=== PATIENT | female | born 1970 | race African-American/Black ===

== ENCOUNTER 2020-07-01 06:27 | Emergency (ER) | payer MEDICAID, OTHER ==
[~2020-07-01] VITALS: Ht 172.7 cm; Wt 78.9 kg
--- NOTE | 2020-07-01 06:40 | NUR ---
Went to evaluate pt however not in room, in bathroom. Ambulates from triage.
[2020-07-01 07:08] VITALS: BP 151/87
--- NOTE | 2020-07-01 07:13 | NUR ---
Recieved report from Jena RDZ. Completed inital assessment on pt who is complaining of R neck pain that radiates to R shoulder. Pt is A&O x4, no obvious deformities, speaking in full sentences. Pt is placed on continious BP and O2 monitor. Positioned for comfort and given warm blanket. CAMILLA.
== END 2020-07-01 08:15 | disposition home or self-care (01) ==
LOC: ED 07:14
DX: S46.811A Strain of other muscles, fascia and tendons at shoulder and upper arm level, right arm, initial encounter (principal); S20.219A Contusion of unspecified front wall of thorax, initial encounter; V49.09XA Driver injured in collision with other motor vehicles in nontraffic accident, initial encounter; Y93.89 Activity, other specified; Y92.410 Unspecified street and highway as the place of occurrence of the external cause; Y99.8 Other external cause status
CPT/HCPCS: 71045; 93005; 99283

== ENCOUNTER 2020-07-02 06:25 | Emergency (ER) | payer MEDICAID, OTHER ==
[~2020-07-02] VITALS: Ht 170.2 cm; Wt 77.8 kg
[2020-07-02 06:32] VITALS: BP 151/90
== END 2020-07-02 07:23 | disposition home or self-care (01) ==
LOC: ED 07:10
DX: M62.830 Muscle spasm of back (principal); M54.2 Cervicalgia
CPT/HCPCS: 99283

== ENCOUNTER 2020-07-09 07:29 | Emergency (ER) | payer MEDICAID, OTHER ==
[~2020-07-09] VITALS: Ht 172.7 cm; Wt 82.1 kg
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
[2020-07-09 08:03] VITALS: BP 139/88
[2020-07-09] MEDS ORDERED: ONDANSETRON 2MG/ML, 2ML IVPush ONE (08:30)
[2020-07-09] MEDS ORDERED: FAMOTIDINE 20 MG/2 ML IVPush ONE (08:30)
[2020-07-09] MEDS ORDERED: SODIUM CHLORIDE 0.9% 1,000ML IVBOLUS ONE (08:30)
== END 2020-07-09 09:32 ==
LOC: ED 08:44
DX: S16.1XXA Strain of muscle, fascia and tendon at neck level, initial encounter (principal); R51.9 Headache, unspecified; M54.5 Low back pain; V59.49XA Driver of pick-up truck or van injured in collision with other motor vehicles in traffic accident, initial encounter; Y93.89 Activity, other specified; Y92.488 Other paved roadways as the place of occurrence of the external cause; Y99.8 Other external cause status
CPT/HCPCS: 70450; 72125; 99285

== ENCOUNTER 2020-07-30 18:10 | Emergency (ER) | payer MEDICAID, OTHER ==
[~2020-07-30] VITALS: Ht 170.2 cm; Wt 76.7 kg
[2020-07-30 18:13] VITALS: BP 170/113
--- NOTE | 2020-07-30 18:48 | NUR ---
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
[2020-07-30] MEDS ORDERED: KETOROLAC 30 MG/1 ML IM ONE (19:00)
[2020-07-30] MEDS ORDERED: KETOROLAC 30 MG/1 ML ONE (19:11)
--- NOTE | 2020-07-30 19:20 | NUR ---
PT TAKEN TO IMAGING AT THIS TIME. PT MEDICATED PER EMAR. C COLLAR APPLIED. NAD NOTED.
== END 2020-07-30 20:27 | disposition home or self-care (01) ==
LOC: ED 20:21
DX: S16.1XXA Strain of muscle, fascia and tendon at neck level, initial encounter (principal); S29.012A Strain of muscle and tendon of back wall of thorax, initial encounter; I10 Essential (primary) hypertension; V49.49XA Driver injured in collision with other motor vehicles in traffic accident, initial encounter; Y93.89 Activity, other specified; Y92.89 Other specified places as the place of occurrence of the external cause; Y99.8 Other external cause status
CPT/HCPCS: 72020; 72050; 72072; 96372; 99284; J1885

== ENCOUNTER 2020-08-04 09:22 | Emergency (ER) | payer MEDICAID, OTHER ==
[~2020-08-04] VITALS: Ht 170.2 cm; Wt 76.8 kg
--- NOTE | 2020-08-04 09:52 | NUR ---
JUAQUIN BEDSIDE WITH PT
--- NOTE | 2020-08-04 10:10 | NUR ---
PT IN IMAGING
[2020-08-04] MEDS ORDERED: [UNRECOGNIZED DRUG - CODE] PO (10:30)
[2020-08-04] MEDS ORDERED: AMLO-210 PO (10:36)
--- NOTE | 2020-08-04 10:40 | NUR ---
PT RESTING AND ASKING FOR TORADOL, STATING THAT IT WAS VERY HELPFUL DURING HER PREVIOUS VISIT. TERESE REZA NOTIFIED. AWAITING NEGATIVE CT BRAIN FOR TORADOL SAFETY. CT RESULTED.
[2020-08-04] MEDS ORDERED: KETOROLAC 30 MG/1 ML IM ONE (11:00)
[2020-08-04] MEDS ORDERED: KETOROLAC 30 MG/1 ML ONE (11:10)
--- NOTE | 2020-08-04 11:12 | NUR ---
gone to imaging
--- NOTE | 2020-08-04 11:28 | NUR ---
PT BACK FROM XRAY, MEDICATED
[2020-08-04 11:47] VITALS: BP 146/97
== END 2020-08-04 11:59 | disposition home or self-care (01) ==
LOC: ED 09:41
DX: S16.1XXA Strain of muscle, fascia and tendon at neck level, initial encounter (principal); G89.11 Acute pain due to trauma; M54.5 Low back pain; R51.9 Headache, unspecified; I10 Essential (primary) hypertension; V89.2XXA Person injured in unspecified motor-vehicle accident, traffic, initial encounter; Y93.89 Activity, other specified; Y92.488 Other paved roadways as the place of occurrence of the external cause; Y99.8 Other external cause status
CPT/HCPCS: 70450; 72072; 72110; 72125; 96372; 99285; J1885